=== PATIENT | female | born 1950 | race Caucasian/White ===

== ENCOUNTER 2022-08-12 06:02 | Day surgery (SDC) | payer MEDICARE ==
[2022-08-07 11:25] VITALS: BMI 37.4
[2022-08-12] MEDS ORDERED: Cyclopentolate 1% Opth Drop 2 ML BOT ONE (06:27)
[2022-08-12] MEDS ORDERED: Phenylephrine 2.5% Ophth Soln 5 ML BOT ONE (06:27)
[2022-08-12] MEDS ORDERED: EPINEPHrine 0.3 MG in Ophthalmic Irrigation Solution 500 ML IRR SCH (06:30)
[2022-08-12] MEDS ORDERED: Midazolam HCl 2 mg/2 ml Vial ONE (06:46)
[2022-08-12] MEDS ORDERED: Fentanyl 100 MCG/2 ML VIAL ONE (06:46)
[2022-08-12] MEDS ORDERED: Lidocaine 1% PF 5 ML VIAL ONE (07:55)
[2022-08-12] MEDS ORDERED: PROPOFOL 200 MG/20 ML VIAL ONE (07:55)
[2022-08-12] MEDS ORDERED: Lidocaine 4% PF 5 ML AMP ONE (07:55)
[2022-08-12] MEDS ORDERED: Maxitrol 0.1% Opth Oint 3.5 GM TUBE ONE (07:55)
[2022-08-12] MEDS ORDERED: Bupivacaine 0.75% 10 ML VIAL ONE (07:55)
[2022-08-12] MEDS ORDERED: CEFAZOLIN 1 GM VIAL ONE (07:55)
[2022-08-12] MEDS ORDERED: Triamcinolone 40 MG/ML VIAL ONE (07:55)
[2022-08-12] MEDS ORDERED: Indocyanine Green 25 MG/10 ML VIAL ONE (07:55)
== END 2022-08-12 09:08 | disposition home or self-care (01) ==
LOC: SDC 06:02
PROVIDERS: ATTEND Ophthalmology Retina Specialist
PROC: 08T43ZZ Resection of Right Vitreous, Percutaneous Approach (ICD-10-PCS; principal; 2022-08-12)
PROC: 08NE3ZZ Release Right Retina, Percutaneous Approach (ICD-10-PCS; 2022-08-12)
DX: H35.371 Puckering of macula, right eye (principal); E78.5 Hyperlipidemia, unspecified; I10 Essential (primary) hypertension; E66.9 Obesity, unspecified; Z68.37 Body mass index [BMI] 37.0-37.9, adult; Z79.1 Long term (current) use of non-steroidal anti-inflammatories (NSAID); Z79.899 Other long term (current) drug therapy; Z88.2 Allergy status to sulfonamides
CPT/HCPCS: J0171; J0690; J2250; J2704; J3010; J3301; J3490